=== PATIENT | male | born 1955 | race Caucasian/White ===

== ENCOUNTER 2018-07-07 16:15 | Emergency (ER) | payer OTHER, MEDICARE ==
[~2018-07-07] VITALS: Ht 180.3 cm; Wt 90.7 kg
[~2018-07-07 16:15] MED LIST: ASPIRIN325 M2 PO; AZITHROMYCIN250 M1 PO; MEDROL4 M2 PO; NAPROSYN 500 M500 MG PO; NAPROSYN500 M1 PO; NORFLEX100 MG PO; NUCYNTA50 MG PO; PERCOCET 5-3251 EACH PO; PROAIR HFA8.5 GM INH; TRAMADOL50 MG PO
[2018-07-07 17:04] LABS: ABSOLUTE BASOPHIL COUNT 0 /CUMM (0.0-0.2); ABSOLUTE EOSINOPHIL COUNT 0.2 /CUMM (0.0-0.7); ABSOLUTE GRANULOCYTE CT 8.3 /CUMM (1.4-6.5); ABSOLUTE LYMPH COUNT 2.4 /CUMM (1.2-3.4); ABSOLUTE MONOCYTE COUNT 0.8 /CUMM (0.10-0.60); BASOPHIL % 0.3 % (0.0-2.0); EOSINOPHIL % 1.3 % (0-5); GRANULOCYTE % 71.5 % (42.2-75.2); MEAN CORPUSCULAR HGB 32.7 PG (27.0-31.0); MEAN CORPUSCULAR HGB CONC 34.2 G/DL (33.0-37.0); MEAN CORPUSCULAR VOLUME 95.5 FL (80.0-94.0); MEAN PLATELET VOLUME 8.8 FL (7.4-10.4); PLATELET COUNT 206 /CUMM (130-400); RED BLOOD CELL CT 5.55 /CUMM (4.70-6.10); WHITE BLOOD CELL COUNT 11.7 /CUMM (4.8-10.8)
--- NOTE | 2018-07-07 17:21 | CT SCAN REPORT ---
EXAMINATION: CT ABDOMEN AND PELVIS WITHOUT IV CONTRAST CLINICAL INFORMATION: 62-year-old patient presenting with back pain and hematuria. COMPARISON: A renal ultrasound of 12/22/2010, CT of the abdomen and pelvis dated 10/21/2015. TECHNIQUE: Multidetector volumetric imaging was performed from the superior aspect of the liver through the pubic symphysis without administration of oral or intravenous contrast. Sagittal and coronal reformatted images were obtained on the technologist's workstation. DLP: 508.4 mGy-cm FINDINGS: LUNG BASES: The visualized lung bases are unremarkable. There is no pleural effusion. LIVER, GALLBLADDER, AND BILIARY TREE: The liver is normal in size, shape, and attenuation. No focal hepatic lesion or biliary ductal dilatation is present. The gallbladder is unremarkable with no evidence of radiopaque gallstones, gallbladder wall thickening, or obvious pericholecystic inflammatory changes. PANCREAS: No pancreatic mass, ductal ectasia, inflammatory changes are seen. SPLEEN: The spleen is not enlarged. ADRENAL GLANDS: The adrenal glands are normal in configuration bilaterally. KIDNEYS AND URETERS: Again noted are the presence of bilateral renal cortical cysts with a dominant exophytic 8.3 x 7.2 x 7.9 cm cyst involving the lower pole the right kidney. There is also a right parapelvic cyst, unchanged. No renal calculi, occult mass, hydronephrosis, or perinephric fluid collections identified. No ureteral calculi are identified. BLADDER: The urinary bladder is decompressed without evidence of bladder wall thickening or a mural mass. The prostate is not enlarged but has central calcifications. GASTROINTESTINAL TRACT: The small and large bowel normal in caliber and distribution. The appendix is unremarkable. There are no findings to suggest active diverticulitis. ABDOMINAL WALL: No significant hernia is appreciated. LYMPH NODES: No mesenteric, retroperitoneal, pelvic, or renal adenopathy is identified. VASCULAR: The abdominal aorta is normal caliber with scattered calcific atherosclerotic changes noted. PELVIC VISCERA: No pelvic mass, focal collection, or free fluid is identified. 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 Degenerative spondylitic changes are present in the lumbar spine, most prominent at L5-S1. No suspicious focal osteolytic or osteoblastic changes are appreciated. No compression fractures are identified. IMPRESSION: 1. No evidence of renal calculi, occult renal mass, or obstructive nephropathy. Stable, large exophytic cyst involving the lower pole right kidney. 2. No mass, adenopathy, or active inflammatory process identified in the abdomen or pelvis. 3. Degenerative changes identified in the spine particularly at the L5-S1 level without evidence of a fracture or metastatic lesion.
[2018-07-07 19:18] VITALS: BP 158/96
--- NOTE | 2018-07-07 19:41 | ED GENERAL ADULT ---
History of Present Illness General Chief Complaint: Male Genitourinary Problems Stated Complaint: HEMATURIA, LOWER BACK PAIN Source: patient Exam Limitations: no limitations Vital Signs & Intake/Output Vital Signs & Intake/Output Vital Signs Date Time Temp Pulse Resp B/P B/P Pulse O2 O2 Flow FiO2 Mean Ox Delivery Rate 07/07 1918 76 20 158/96 97 Room Air 07/07 1620 96.4 90 20 158/109 97 Room Air Allergies Coded Allergies: NO KNOWN ALLERGIES (07/23/16) Reconcile Medications Albuterol Sulfate (Proair Hfa) 8.5 GM HFA.AER.AD 2 PUF INH Q4-6 PRN PRN bronchitis Aspirin (Aspirin*) 325 MG TABLET 1 TAB PO DAILY PRN PAIN (Reported) Azithromycin 250 MG TABLET 1 DP PO AD bronchitis 2 the first day followed by 1 for days 2-5 Ibuprofen 800 MG TABLET 1 TAB PO TID PRN pain Methylprednisolone. (Medrol) 4 MG TAB.DS.PK 1 DP PO AD bronchitis 6 on day 1 then reduce by one tablet daily until gone Tapentadol Hydrochloride (Nucynta) 50 MG TAB 1 TAB PO BID PAIN (Reported) Triage Note: PT HERE WITH C/O LEFT FLANK AND LOWER ABD PAIN THAT STARTED TODAY. PT REPORTS THAT HIS URINE IS DARK RED, DENIES HX OF STONES. Triage Nurses Notes Reviewed? yes HPI: 62-year-old male presents with left flank pain which started this morning. Pain radiating to the lower abdomen. Associated symptoms of hematuria. Patient states he urinated a couple clots. History of right renal cyst. Negative for nausea vomiting chills fever constipation or diarrhea. Past History Travel History Traveled to [place] past 21 day No Medical History Any Pertinent Medical History? see below for history Neurological: NONE EENT: NONE Cardiovascular: NONE Respiratory: emphysema Gastrointestinal: NONE Hepatic: NONE Renal: NONE Musculoskeletal: chronic back pain, disk herniation, R KNEE TORN CARTILIDGE Endocrine: NONE Surgical History Surgical History: BACK SURGERY Psychosocial History Who do you live with Patient/Self Services at Home None What is your primary language Kyrgyz Tobacco Use: Current Daily Use Daily Tobacco Use Amount/Type: => 5 Cigarettes daily ETOH Use: occasional use Illicit Drug Use: denies illicit drug use Family History Hx Contributory? No Review of Systems Review of Systems Constitutional: Reports: no symptoms, see HPI. EENTM: Reports: no symptoms. Respiratory: Reports: no symptoms. Cardiovascular: Reports: no symptoms. GI: Reports: no symptoms. Genitourinary: Reports: no symptoms. Musculoskeletal: Reports: no symptoms. Skin: Reports: no symptoms. Neurological/Psychological: Reports: no symptoms. Hematologic/Endocrine: Reports: no symptoms. Immunologic/Allergic: Reports: no symptoms. All Other Systems: Reviewed and Negative Physical Exam Physical Exam General Appearance: well developed/nourished, no apparent distress Comments: Gen.: Well-nourished, well-developed, no acute respiratory distress. Head: Normocephalic, atraumatic. Eyes: Normal inspection bilaterally Ears: Normal inspection bilaterally Nose: Normal inspection Throat/mouth : Moist mucosa Neck: Supple, full range of motion, no goiter Heart: Regular rate and rhythm, no murmurs rubs or gallops Lungs: Clear to auscultation bilaterally with normal air entry Chest: Nontender Back: Normal range of motion Abdomen: Soft, nontender, nondistended, positive for left-sided CVA tenderness Extremities: Normal range of motion grossly, equal radial pulses, no cyanosis clubbing or edema Neurologic: Cranial nerves grossly intact, speech is clear Skin: warm and dry Psychiatric: Calm, cooperative, no apparent delusions or hallucinations Core Measures ACS in differential dx? No CVA/TIA Diagnosis: No Sepsis Present: No Sepsis Focused Exam Completed? No Progress Differential Diagnoses I considered the following diagnoses in my evaluation of the patient: Appendicitis-the patient did not have migration of the pain to the right lower quadrant, tenderness over McBurney's point, Rovsing sign, white cell blood count was not elevated, and the diagnostic imaging studies did not confirm this Peritonitis-the patient had no rebound or guarding, did not have a rigid abdomen , the white blood cell count was not elevated and There was no inflammatory process on diagnostic imaging studies. Cholecystitis-the patient had no Hampton's sign on exam, white blood cell count was normal, and diagnostic imaging studies showed no inflammatory changes in the region of the gallbladder Pancreatitis-the lipase was normal, patient had no history of alcohol abuse or hypertriglyceridemia, but the diagnostic imaging studies did not show inflammation or edema in the area of the pancreas GI bleed-patient had no history of prior GI bleed, patient denied consistent use of NSAIDs, the patient is not taking anticoagulants such as Coumadin, the patient denied melena. AAA-the patient has a paucity of significant risk factors for vascular disease, there is no pulsatile abdominal mass, lower extremity pulses were equal Hernia-there were no apparent hernias on physical examination, the patient denied any unusual bulges or masses Ischemic bowel-the patient has a paucity of risk factors for vascular disease or thrombosis, physical examination did not reveal pain out of proportion to physical exam findings, diagnostic imaging studies were inconsistent with bowel ischemia Bowel obstruction-patient's abdomen was not significantly distended or hypertympanitic, patient had good bowel sounds, patient was having bowel movements and passing flatus. Plan of Care: Orders Procedure Date/time Status URINALYSIS 07/07 162 Complete COMPREHENSIVE METABOLIC PANEL 07/07 1620 Complete CBC WITHOUT DIFFERENTIAL 07/07 1620 Complete Laboratory Tests 07/07/18 1642: Urine Color BLDY H, Urine Clarity TURBD H, Urine pH 6.0, Ur Specific [place] 1.020, Urine Protein TRACE H, Urine Ketones NEG, Urine Nitrite NEG, Urine Bilirubin NEG@ICTO, Urine Urobilinogen 0.2, Ur Leukocyte Esterase TRACE H, Ur Microscopic SEDIMENT EXAMINED, Urine RBC PACKD H, Micro UA Comment MORE INFO: H, Urine Hemoglobin LARGE H, Urine Glucose NEG 07/07/18 1628: Anion Gap 11, Estimated GFR > 60, BUN/Creatinine Ratio 16.4, Glucose 88, Calcium 9.8, Total Bilirubin 0.8, AST 35, ALT 58, Alkaline Phosphatase 79, Total Protein 7.3, Albumin 4.5, Globulin 2.8, Albumin/Globulin Ratio 1.6, CBC w Diff NO MAN DIFF REQ, RBC 5.55, MCV 95.5 H, MCH 32.7 H, MCHC 34.2, RDW 13.0, MPV 8.8, Gran % 71.5, Lymphocytes % 20.2 L, Monocytes % 6.7, Eosinophils % 1.3, Basophils % 0.3, Absolute Granulocytes 8.3 H, Absolute Lymphocytes 2.4, Absolute Monocytes 0.8 H, Absolute Eosinophils 0.2, Absolute Basophils 0 Initial ED EKG: none Comments: Patient likely suffering from a passed kidney stone. He is to follow-up with urology for further evaluation of his hematuria. Return precautions given. Patient demonstrated understanding great care plan. Departure Departure Disposition: HOME OR SELF CARE Condition: Stable Clinical Impression Primary Impression: Hematuria Qualifiers: Hematuria type: unspecified type Qualified Code: R31.9 - Hematuria, unspecified Secondary Impressions: Left flank pain, Renal cyst, right Referrals: Lorenzo HENRY,Barb Pizarro MD,Jose Antonio (PCP/Family) Additional Instructions: Follow-up with urology later this week. Departure Forms: Customer Survey General Discharge Information Prescriptions: Current Visit Scripts Ibuprofen 1 TAB PO TID PRN pain #15 TAB Comments Please note that there might be incidental findings in your evaluation that are unrelated to the current emergency department visit. Please notify your primary care doctor about this emergency department visit in order to obtain and review all of the testing performed so that these incidental findings can be monitored as needed. If you had an x-ray performed, please understand that some fractures may not be seen on the initial set of x-rays. If your symptoms persist you might need a repeat set of x-rays to check for such a fracture. If you had a laceration evaluated, please understand that foreign bodies such as glass or wood may not be visible to the naked eye or on plain x-rays. If the wound becomes red, swollen, increasingly more painful or if there is any drainage from the wound, please have it reevaluated by a physician for the possibility of a retained foreign body. If you're unable to follow up as outlined in the discharge instructions please return to the emergency department. Critical Care Note Critical Care Note Critical Care Time: non-applicable
[2018-07-07] MEDS ORDERED: IBUPROFEN800 M1 PO (19:42)
== END 2018-07-07 19:49 ==
LOC: ERH 16:15
PROVIDERS: Physician Assistant Medical
DX: N28.1 Cyst of kidney, acquired (principal); F17.210 Nicotine dependence, cigarettes, uncomplicated; Z79.82 Long term (current) use of aspirin; F10.10 Alcohol abuse, uncomplicated; M54.9 Dorsalgia, unspecified
CPT/HCPCS: 74176; 81001; 96372; J1885